=== PATIENT | male | born 1955 | race Caucasian/White ===

== ENCOUNTER 2017-04-18 07:19 | Day surgery (SDC) | payer BC ==
[2017-04-11 13:56] VITALS: BMI 38.0
[~2017-04-18 07:19] MED LIST: LACTATED RINGERS 1,000 ML IV SCH
[2017-04-18 07:47] LABS: Glucose,Whole Blood 209 mg/dL (75-99)
[2017-04-18] MEDS ORDERED: PROPOFOL 10 MG/ML 20 ML VIAL IV ONE (08:32)
[2017-04-18] MEDS ORDERED: fentaNYL (PF) 50 MCG/ML 2 ML AMP ONE (08:32)
--- NOTE | 2017-04-18 09:07 | P.PCN ---
Date of Procedure: 04/18/17 Procedure(s) Performed: Procedure: Colonoscopy and biopsy and polypectomy. Preoperative diagnosis: Positive cologuard test. Postoperative diagnosis: 1. Sigmoid diverticulosis with no evidence of acute diverticulitis or strictures. 2. Diminutive polyp around the hepatic flexure biopsied. 3. Small polyp in the distal sigmoid snared. 4. No large polyps, cancer or bleeding. Preparation: HalfLytely prep. Sedation: Was provided by anesthesia. Brief clinical history: The patient is 62-year-old male who is referred for this evaluation because of positive cologuard test which was performed for screening for colon neoplasia. The patient has no overt bleeding, family history of colon cancer, significant abdominal pains, upper GI complaints or anemia. He had no prior colonoscopy. Procedure: With the patient on his left lateral decubitus position and after informed consent and adequate sedation, the perianal area was inspected and it did not show any fissures or fistulas. There were no masses felt on digital rectal examination. The Olympus CFQ 160L video colonoscope was then inserted in the rectum in the usual fashion and advanced to the cecum. There was a diminutive polyp around the hepatic flexure which was biopsied. There was a small polyp in the distal sigmoid which I snared but there were no large polyps or cancer. The mucosa appeared healthy. Several diverticular orifices were seen scattered in the sigmoid with no evidence of acute diverticulitis or strictures. I retroflexed the endoscope in the rectum before the endoscope was withdrawn. The patient tolerated the procedure well. Plan: The patient was reassured. Discussed dietary measures. Will await pathology results. I anticipate repeating this colonoscopy in 5 years depending on his pathology results. He will follow up with you as planned. In the absence of upper GI complaints or anemia, I did not recommend upper GI workup at this time for the workup of his stool positive occult blood and this can be kept as a contingency based on his course.
[2017-04-18 16:28] VITALS: BP 117/74; PULSE 69; RESP 20; TEMP 98.1
== END 2017-04-18 09:53 | disposition home or self-care (01) ==
LOC: ORWHC2ENDO 07:19
DX: K63.5 Polyp of colon (principal); K57.30 Diverticulosis of large intestine without perforation or abscess without bleeding; R19.5 Other fecal abnormalities; E11.9 Type 2 diabetes mellitus without complications; I10 Essential (primary) hypertension; I25.10 Atherosclerotic heart disease of native coronary artery without angina pectoris; Z95.5 Presence of coronary angioplasty implant and graft; I25.2 Old myocardial infarction; E78.5 Hyperlipidemia, unspecified; Z79.82 Long term (current) use of aspirin; Z79.899 Other long term (current) drug therapy; Z72.0 Tobacco use
CPT/HCPCS: 88305; 45380; 45385; J3010; J2704

== ENCOUNTER 2023-08-09 08:02 | Day surgery (SDC) | payer MEDICARE ==
[~2023-08-09 08:02] MED LIST changes: +LIDOCAINE 1% (10MG/ML) FOR IV START INTRADERMA PRN
[2023-08-09] MEDS: LACTATED RINGERS 1,000 ML IV ONE (08:11)
[2023-08-09 08:38] LABS: Glucose,Whole Blood 147 mg/dL (70-110)
[2023-08-09 08:52] VITALS: TEMP 96.9
[2023-08-09] MEDS ORDERED: PROPOFOL 10 MG/ML 20 ML VIAL IV ONE (09:01)
--- NOTE | 2023-08-09 09:21 | P.PCN ---
Date of Procedure: 08/09/23 Procedure(s) Performed: BRIEF HISTORY: Patient is a 68-year-old pleasant white male scheduled for an elective colonoscopy as a part of screening for colon cancer. PROCEDURE PERFORMED: Colonoscopy. PREOPERATIVE DIAGNOSIS: Screening for colon cancer. IV sedation per Anesthesia. PROCEDURE: After informed consent was obtained, the patient, was brought into the endoscopy unit. IV sedation was administered by Anesthesia under continuous monitoring. Digital rectal examination was normal. Initially the Olympus CF-160 flexible video colonoscope was then inserted in the rectum, gradually advanced into the cecum without any difficulty. Careful examination was performed as the scope was gradually being withdrawn. Ileocecal valve and the appendiceal orifice were visualized and appeared normal. Prep was excellent. Mucosa of the cecum, ascending colon, transverse colon, descending colon, sigmoid colon, and rectum appeared normal. Retroflexion was performed in the rectum and no lesions were seen. Scattered sigmoid diverticulosis. The patient tolerated the procedure well. IMPRESSION: Normal-appearing colon from rectum to cecum no evidence of colorectal neoplasia. Scattered sigmoid diverticulosis. RECOMMENDATIONS: Findings of this examination were discussed with the patient as well as his family. He was advised to have repeat screening colonoscopy in 10 years. Scattered, diverticulosis. .
[2023-08-09 09:40] VITALS: RESP 16
[2023-08-09 10:26] VITALS: BP 118/64; PULSE 62
== END 2023-08-09 09:54 ==
LOC: ORWHC2ENDO 08:02
PROVIDERS: ATTEND Internal Medicine Gastroenterology
DX: Z12.11 Encounter for screening for malignant neoplasm of colon (principal); K57.30 Diverticulosis of large intestine without perforation or abscess without bleeding; I25.2 Old myocardial infarction; I25.10 Atherosclerotic heart disease of native coronary artery without angina pectoris; I10 Essential (primary) hypertension; E78.5 Hyperlipidemia, unspecified; E11.9 Type 2 diabetes mellitus without complications; F17.200 Nicotine dependence, unspecified, uncomplicated; Z79.82 Long term (current) use of aspirin; Z79.01 Long term (current) use of anticoagulants; Z79.84 Long term (current) use of oral hypoglycemic drugs; Z79.899 Other long term (current) drug therapy
CPT/HCPCS: J2704; G0121